=== PATIENT | female | born 1985 | race African-American/Black ===

== ENCOUNTER 2018-04-01 08:36 | Inpatient (IN) | payer OTHER ==
[~2018-04-01] VITALS: Ht 152.4 cm; Wt 70.0 kg
[2018-04-01] MEDS ORDERED: D5%-LACTATED RINGERS 1,000 ML IV SCH (09:09)
[2018-04-01] MEDS ORDERED: OXYTOCIN 30U/ 0.9% NaCL 500ML 500 ML IV ONE (09:09)
[2018-04-01] MEDS: LACTATED RINGERS 1,000 ML IV SCH ×2 (09:09→17:09)
[2018-04-01] MEDS ORDERED: TERBUTALINE 1 MG/ML, 1ML IVPush PRN (09:30)
[2018-04-01] MEDS ORDERED: FENTANYL PF 100 MCG/2ML IV PRN (09:30)
[2018-04-01] MEDS ORDERED: FENTANYL PF 100 MCG/2ML IVPush PRN (09:30)
[2018-04-01] MEDS ORDERED: ONDANSETRON 2MG/ML, 2ML IVPush PRN (09:30)
[2018-04-01] MEDS ORDERED: CALCIUM CARBONATE 500 MG TAB.CHEW PO PRN (09:30)
[2018-04-01] MEDS ORDERED: NEWBORN KIT ONE (09:38)
[2018-04-01] MEDS ORDERED: LIDOCAINE/PF 1%, 30ML ONE (09:38)
[2018-04-01] MEDS ORDERED: OXYTOCIN 10 UNITS/ML, 1ML ONE (09:38)
[2018-04-01] MEDS ORDERED: MISOPROSTOL 200 MCG TABLET ONE (09:39)
[2018-04-01] MEDS ORDERED: OXYTOCIN 30U/ 0.9% NaCL 500ML 500 ML ONE (09:39)
[2018-04-01 09:45] LABS: BASOPHILS # (AUTO) 0.01 x10^3/uL (0-0.1); BASOPHILS % (AUTO) 0 % (0-1); EOSINOPHILS # (AUTO) 0.04 x10^3/uL (0-0.4); EOSINOPHILS % (AUTO) 1 % (1-7); LYMPHOCYTES # (AUTO) 0.88 x10^3/uL (1-3.4); LYMPHOCYTES % (AUTO) 12 % (22-44); MD NO; MEAN CORPUSCULAR HEMOGLOBIN 32.4 pg (27.0-34.8); MEAN CORPUSCULAR HGB CONC 33.3 g/dL (32.4-35.8); MEAN CORPUSCULAR VOLUME 97.2 fL (80-100); MEAN PLATELET VOLUME 10.1 fL (7.4-10.4); MONOCYTES % (AUTO) 5 % (2-9); NEUTROPHILS # (AUTO) 6.26 x10^3/uL (1.8-6.8); NEUTROPHILS % (AUTO) 83 % (42-75); PLATELET COUNT 184 x10^3/uL (130-400); RED BLOOD COUNT 4.12 x10^6/uL (3.82-5.3); RED CELL DISTRIBUTION WIDTH 15.7 % (9.6-15.2)
[2018-04-01] MEDS ORDERED: SODIUM CHLORIDE FLUSH 10ML SYR IVF PRN (11:30)
[2018-04-01] MEDS ORDERED: FENTANYL PF 100 MCG/2ML ONE (12:32)
[2018-04-01] MEDS: OXYTOCIN 30U/ 0.9% NaCL 500ML 500 ML IV SCH ×2 (12:44→22:44)
[2018-04-01] MEDS ORDERED: METHYLERGONOVINE 0.2 MG/ML IM PRN (13:00)
[2018-04-01] MEDS ORDERED: OXYcodone/APAP 5/325MG TABLET PO PRN ×2 (13:00)
[2018-04-01] MEDS ORDERED: MISOPROSTOL 200 MCG TABLET PO PRN (13:00)
[2018-04-01] MEDS ORDERED: RHOGAM FROM BLOOD BANK 1 NOTE EA IM/IV ONE (13:00)
[2018-04-01] MEDS ORDERED: ONDANSETRON 2MG/ML, 2ML IV PRN (13:00)
[2018-04-01] MEDS: PRENATAL VIT/IRON/FA 1 EACH TABLET PO SCH (13:00)
[2018-04-01] MEDS ORDERED: DOCUSATE 100 MG CAPSULE PO PRN (13:00)
[2018-04-01] MEDS ORDERED: IBUPROFEN 600 MG TABLET ONE (13:03)
[2018-04-01] MEDS ORDERED: OXYcodone/APAP 5/325MG TABLET ONE (13:03)
[2018-04-01] MEDS: IBUPROFEN 600 MG TABLET PO PRN ×2 (13:05→18:24)
[2018-04-01 15:00] VITALS: BP 101/63
[2018-04-01 19:30] VITALS: BP 105/74
[2018-04-01 20:58] LABS: BASOPHILS # (AUTO) 0.02 x10^3/uL (0-0.1); BASOPHILS % (AUTO) 0 % (0-1); EOSINOPHILS # (AUTO) 0.01 x10^3/uL (0-0.4); EOSINOPHILS % (AUTO) 0 % (1-7); LYMPHOCYTES # (AUTO) 1.17 x10^3/uL (1-3.4); LYMPHOCYTES % (AUTO) 9 % (22-44); MD NO; MEAN CORPUSCULAR HGB CONC 32.8 g/dL (32.4-35.8); MEAN CORPUSCULAR VOLUME 97.7 fL (80-100); MEAN PLATELET VOLUME 10.2 fL (7.4-10.4); MONOCYTES # (AUTO) 0.98 x10^3/uL (0.2-0.8); MONOCYTES % (AUTO) 8 % (2-9); NEUTROPHILS # (AUTO) 10.52 x10^3/uL (1.8-6.8); NEUTROPHILS % (AUTO) 83 % (42-75); PLATELET COUNT 176 x10^3/uL (130-400); RED BLOOD COUNT 3.85 x10^6/uL (3.82-5.3); RED CELL DISTRIBUTION WIDTH 15.4 % (9.6-15.2)
[2018-04-02 00:40] VITALS: BP 107/67
[2018-04-02] MEDS: IBUPROFEN 600 MG TABLET PO PRN ×3 (00:42→14:25)
[2018-04-02] MEDS: LACTATED RINGERS 1,000 ML IV SCH ×2 (01:09→09:09)
[2018-04-02 04:30] VITALS: BP 97/60
[2018-04-02] MEDS: PRENATAL VIT/IRON/FA 1 EACH TABLET PO SCH (07:36)
[2018-04-02 07:43] VITALS: BP 109/73
[2018-04-02] MEDS: OXYTOCIN 30U/ 0.9% NaCL 500ML 500 ML IV SCH (08:44)
[2018-04-02] MEDS ORDERED: IBUP-1222 PO (13:11)
== END 2018-04-02 15:08 | disposition home or self-care (01) | DRG 807 ==
LOC: LDOP 08:36 → LDIP 09:03 → 2NW 14:27
PROVIDERS: ADMIT Obstetrics & Gynecology; ATTEND Obstetrics & Gynecology
PROC: 10E0XZZ Delivery of Products of Conception, External Approach (ICD-10-PCS; principal; 2018-04-01)
PROC: 0KQM0ZZ Repair Perineum Muscle, Open Approach (ICD-10-PCS; 2018-04-01)
PROC: 10907ZC Drainage of Amniotic Fluid, Therapeutic from Products of Conception, Via Natural or Artificial Opening (ICD-10-PCS; 2018-04-01)
DX: O70.1 Second degree perineal laceration during delivery (principal); Z37.0 Single live birth; Z3A.39 39 weeks gestation of pregnancy; Z88.0 Allergy status to penicillin
CPT/HCPCS: 36415; 82803; 85025; 86850; 86900; G0378; J3010